=== PATIENT | male | born 1975 | race African-American/Black ===

== ENCOUNTER → 2019-01-21 | Outpatient (CLI) | payer OTHER ==
[~2019-01-21] MED LIST: TIZA4TAB PO
--- NOTE | 2019-01-21 23:58 | PAIN ---
DATE OF SERVICE: 01/21/2019 INITIAL CONSULTATION FOR PAIN CLINIC CHIEF COMPLAINT: Neck and right upper extremity pain. HISTORY OF PRESENT ILLNESS: This is a 43-year-old male who presents with history of pain since many years, worse over the past 2 years of pain in the base of the neck, right shoulder, radiating to the right arm and upper extremity with some numbness and tingling in the hand and forearm as well, mostly in the posterior aspect with some on the anterior aspect of the forearm as well, tingling in the first 3 to 4 fingers without any motor loss. The patient reports some easy fatigability with the right upper extremity compared to the left and no symptoms on the left side. The patient reports this is becoming more constant, is radiating, more aching, is waking him from sleep at night occasionally 3-4 times, not affecting his ability to walk or any bowel or bladder control. The patient has had recent physical therapy and exercise, neither one he says helped the pain much. He is still doing exercises on his own, but still not significantly improved. The patient reports it is worse with lifting things, reaching up over his head with his right arm and picking things up off the ground, fine motor movements such as buttoning a button on his shirt, reaching posteriorly behind him or driving increases the pain as well. The patient reports it is constant, radiating and burning in quality. The patient reports some pain in the base of the shoulder, in the posterior scapula as well as the posterior neck on the right side without any symptoms on the left. The patient did have MRI scan of the cervical spine showing at C5-C6, small left lateral disk protrusion with no spinal canal or neural foraminal stenosis. C6-C7 shows small posterior disk protrusion with no neural foraminal stenosis as well. The patient's disability rating from 0-10, 10 being the worst, is a 2 with family home responsibilities, social activity; 7 with recreation; 8 with occupation; 1 with sexual behavior; 3 with self-care and 0 with life support activities. The patient reports again no loss of motor function, but significant fatigability with the right arm with any repetitive motions. PAST MEDICAL HISTORY: Significant for arthritis, ringing in the ears and hearing loss. PREVIOUS SURGERY: Includes sinus surgery in 2018, septoplasty in 2010, vasectomy in the past, left elbow surgery and wisdom teeth extraction. CURRENT MEDICATIONS: Include only tizanidine. ALLERGIES: The patient has no known drug allergies. FAMILY HISTORY: Significant for hypertension. SOCIAL HISTORY: The patient does not drink alcohol, does not smoke, do not use any illegal, illicit or recreational drugs. 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 REVIEW OF SYSTEMS: The patient's review of systems is positive for those items mentioned in history of present illness. All systems reviewed and otherwise negative. It is complete, full and well documented on the patient's chart. PHYSICAL EXAMINATION: VITAL SIGNS: The patient's blood pressure is 112/69, pulse 58, respirations 16, temperature 97.7 degrees Fahrenheit, height 5 feet 11 inches, weight is 256 pounds. GENERAL: The patient is awake, alert, oriented, appropriate, very pleasant demeanor. HEENT: Shows normocephalic, atraumatic. Extraocular movements are intact and symmetrical. Oral cavity: Mucous membranes moist and pink. Dentition is intact. NECK: Shows anterior throat supple without palpable lymphadenopathy noted. Swallow reflex symmetrical. CHEST: Shows normal on inspection. Breath sounds are clear to auscultation bilaterally. HEART: Shows S1, S2 clear. No murmurs auscultated. ABDOMEN: Soft, nontender, nondistended. No palpable organomegaly is noted. No rebound or guarding demonstrated. BACK: Shows spine grossly in the midline. Normal-appearing cervical lordotic curvature, thoracic kyphotic curvature and lumbar lordotic curvature. The patient's neck shows good rotational motion of cervical spine both laterally as well as extension and flexion past 45 degrees right and left lateral has full extension, full forward flexion, without difficulty or pain reported. Paraspinous musculature shows symmetrical on inspection. With palpation shows some mild tenderness inferior, more in the right than the left into the superior medial trapezius and inferior cervical paraspinous musculature, but without atrophy, hypertrophy without trigger points and without radiation. EXTREMITIES: The patient's upper extremities show deep tendon reflexes 2+ in the biceps and triceps tendons. Motor exam is strong with ambulatory care strength rated at 5/5 and equal and symmetrical. Peripheral pulses are 2+ radial distribution. No peripheral edema is noted. Upper extremities are warm and dry to touch, equal in color and appearance. Shoulder shrug is strong and intact without loss of strength on resistance, as is abduction of shoulders at 90 degrees without loss of strength on resistance or without pain reported in the right upper extremity. Motor is 5/5 with ambulatory care strength, bicep and tricep flexion and symmetrical as well. SKIN: The patient's skin shows warm and dry, good turgor. No edema. No sores, rashes or bruising throughout. IMPRESSION: This is a 43-year-old male with: 1. Approximately 2-year history of increasing pain in neck, right upper extremity in a radicular fashion. 2. MRI scan of cervical spine as noted. 3. History of arthritis. PLAN: Options were discussed with the patient and the patient's spouse who accompanies to visit today including conservative medical management, physical therapy, interventional techniques. He has done physical therapies. He has done stretching and strengthening exercises, still doing these. He would like to pursue interventional techniques. We discussed the cervical epidural steroid injection using description as well as anatomical models to describe the procedure. The patient will wait for preauthorization with insurance provider and have him return once this is obtained. In the meantime, we will try Medrol Dosepak. The patient was given instruction as well as side effects to be aware of with the medication. He will continue doing stretching and strengthening exercises and follow up as scheduled on return for cervical epidural steroid injection at that time. LEANA BULL MD DR: IRINA/krystin JOB#: [id number] / [id number]
== END | disposition home or self-care (01) ==
LOC: PNCL 13:06
PROVIDERS: ATTEND Anesthesiology
DX: M54.2 Cervicalgia (principal); M25.511 Pain in right shoulder; R20.2 Paresthesia of skin; R20.0 Anesthesia of skin; M19.90 Unspecified osteoarthritis, unspecified site
CPT/HCPCS: G0463

== ENCOUNTER → 2019-02-02 | Outpatient (CLI) | payer OTHER ==
[~2019-02-02] MED LIST changes: +IOHEXOL 180 MG/ML 10 ML VIAL. ONE; +methylPREDNISolone ACETATE 40 MG/ML VIAL. ONE; +methylPREDNISolone ACETATE 80 MG/ML VIAL. ONE
--- NOTE | 2019-02-02 22:08 | PAIN ---
DATE OF SERVICE: 02/02/2019 PROGRESS NOTE FOR PAIN CLINIC DIAGNOSES: Cervical radiculopathy with cervical degenerative disk disease. HISTORY OF PRESENT ILLNESS: The patient is a 43-year-old male who returns for followup status post initial evaluation and preauthorization for cervical epidural steroid injection. The patient returns today wishing to proceed with that authorization. The patient reports no new motor or sensory deficits. Still pain in the base of the neck and right upper extremity as it was previously with weight lifting, moving items, reaching over his head with his right hand and activity. The patient reports it does bother him from sleep occasionally, but did not wake him up every night. The patient reports no new motor or sensory deficits, no new bowel or bladder incontinence or other complaints. PHYSICAL EXAMINATION: VITAL SIGNS: Today, the patient's blood pressure is 118/67, pulse 55, respirations 18, temperature 98.1 degrees Fahrenheit, height 5 feet 11 inches and weight is 258 pounds. GENERAL: The patient is awake, alert, oriented, appropriate, very pleasant demeanor. HEENT: Shows normocephalic and atraumatic. Extraocular movements are intact and symmetrical. Oral cavity: Mucous membranes are moist and pink. Dentition is intact. NECK: Shows anterior throat is supple without palpable lymphadenopathy noted. Swallow reflex is symmetrical. CHEST: Shows normal with inspection. Breath sounds are clear to auscultation bilaterally. HEART: Shows S1 and S2 clear. No murmurs are auscultated. ABDOMEN: Soft, nontender and nondistended. No palpable organomegaly is noted. No rebound or guarding demonstrated. BACK: Shows spine grossly in the midline, normal-appearing cervical lordotic curvature, thoracic kyphotic curvature. Cervical paraspinous muscle shows symmetrical on inspection. On palpation, some moderate tenderness in the inferior aspect of the right side of the inferior cervical paraspinous musculature and the superior medial trapezius on the right. The patient has full rotational motion of the cervical spine; however, both laterally as well as extension and flexion without significant difficulty. EXTREMITIES: Upper extremities show deep tendon reflexes 2+ in the biceps, triceps tendons. Motor exam is strong with 5/5 career professional strength, bicep and tricep flexion. Shoulder shrug is strong and intact bilaterally. Peripheral pulses are 2+ radial distribution. No peripheral edema is noted. Options were discussed with the patient. The patient's old chart was reviewed as was his current medication regimen updated. Current review of systems updated today as well. We will proceed with a cervical epidural steroid injection today with fluoroscopic guidance. Risks were again discussed including, but not limited to bleeding, infection, possibility of epidural hematoma, subsequent neurological compromise, dural puncture, headaches, spinal cord and/or nerve damage, side effects of steroid medication and poor results regarding pain control. The patient understands and wished to proceed. The patient will return to the clinic in approximately 2 weeks for followup, was counseled as to return appointment, activity level and side effects to be aware of. DIAGNOSES: Cervical radiculopathy with cervical degenerative disk disease. PROCEDURE: Cervical epidural steroid injection, translaminar approach C6-C7 level using C-arm fluoroscopic guidance under sterile prep and drape using local anesthetic. MEDICATION INJECTED: A total of 120 mg Depo-Medrol plus 5 mL of preservative-free normal saline and 2 mL of Isovue for contrast. CONDITION AT DISCHARGE: Stable. The patient tolerated the procedure well and had no complications. LEANA BULL MD DR: IRINA/krystin JOB#: [id number] / [id number]
== END | disposition home or self-care (01) ==
LOC: PNCL 08:33
PROVIDERS: ATTEND Anesthesiology
DX: M50.123 Cervical disc disorder at C6-C7 level with radiculopathy (principal)
CPT/HCPCS: 62321; J1030; J1040; Q9965

== ENCOUNTER → 2019-02-24 | Outpatient (CLI) | payer OTHER ==
--- NOTE | 2019-02-25 01:29 | PAIN ---
DATE OF SERVICE: 02/24/2019 PROGRESS NOTE FOR PAIN CLINIC: DIAGNOSES: Cervical radiculopathy with cervical degenerative disk disease. HISTORY OF PRESENT ILLNESS: The patient is a 43-year-old male who returns for followup status post cervical epidural steroid injection x 1. The patient reports only minimal decrease in pain in the neck and the right upper extremity as it was previously. The patient reports pain has returned fairly significantly after, but just a few days into the base of the neck, the right side, right shoulder, right upper extremity, right arm with some radiation to the right hand at times. The patient reports no significant new motor or sensory deficits, no weakness of the upper extremity or new findings, worse with repetitive motions, lifting items with the right arm, driving the car with a right hand. The patient reports pain is 8 on a scale of 10 at its worst, 6 on average and a 6 at its least over the past week and is a 6 today. The patient reports it is dull, burning and radiating to the right arm as described. The patient reports no new motor or sensory deficits, wake him from sleep at least about every 4 hours at night. PHYSICAL EXAMINATION: VITAL SIGNS: The patient's blood pressure 125/82, pulse 68, respirations 18, temperature 98.2 degrees Fahrenheit, height 5 feet 11 inches, weighs 259 pounds. GENERAL: The patient is awake, alert, oriented, appropriate, very pleasant demeanor. HEENT: Head is normocephalic, atraumatic. Extraocular movements are intact and symmetrical. Oral cavity, mucous membranes are moist and pink. Dentition is intact. NECK: Shows anterior throat supple without palpable lymphadenopathy noted. EXTREMITIES: The patient's upper extremities show deep tendon reflexes 2+ in the biceps and triceps tendons. Motor exam is 5/5 with edge stripper strength, bicep and tricep flexion and equal. Peripheral pulses are 2+ in the radial distribution. No peripheral edema is noted bilaterally. NECK: Shows good rotational motion of cervical spine, both laterally as well as extension and flexion without significant increase in pain. Options were discussed with the patient. The patient's old chart was reviewed as his current medication regimen updated. Current review of systems updated today as well. We will proceed with a second cervical epidural steroid injection today with fluoroscopic guidance. Risks were again discussed including, but not limited to bleeding, infection, possibility of epidural hematoma, subsequent neurological compromise, dural puncture headaches, spinal cord and/or nerve damage, side effects of steroid medication and poor results regarding pain control. The patient understands and wished to proceed. The patient will return to clinic in approximately 2 weeks for followup, was counseled as to return appointment, activity level and side effects to be aware of. DIAGNOSES: Cervical radiculopathy with cervical degenerative disk disease. PROCEDURE: Cervical epidural steroid injection, translaminar approach C6-C7 level using C-arm fluoroscopic guidance under sterile prep and drape using local anesthetic. MEDICATION INJECTED: A total of 120 mg Depo-Medrol plus 5 mL of preservative-free normal saline and 2 mL of contrast. CONDITION AT DISCHARGE: Stable. The patient tolerated the procedure well, had no complications. LEANA BULL MD DR: IRINA/krystin JOB#: [id number] / [id number]
== END | disposition home or self-care (01) ==
LOC: PNCL 09:25
PROVIDERS: ATTEND Anesthesiology
DX: M50.123 Cervical disc disorder at C6-C7 level with radiculopathy (principal)
CPT/HCPCS: 62321; J1030; J1040; Q9965